=== PATIENT | female | born 1995 | race Caucasian/White ===

== ENCOUNTER 2019-11-13 04:05 | Inpatient (IN) ==
[2019-11-13] MEDS ORDERED: OXYTOCIN 30 UNITS/500 ML BAG IV PRN ×3 (04:43→14:25)
[2019-11-13 05:09] LABS: Hematocrit (blood only) 36.1 % (37-47); Hemoglobin 12.6 g/dL (12.0-16.0); Mean Corpuscular Hemoglobin 31.8 pg (25-34); Mean Corpuscular Volume 91.2 fL (80-100); Mean Platelet Volume 11.1 fL (7.4-10.4); Platelet Count 211 K/uL (130-400); RDW Coefficient of Variation 11.9 % (11.5-14.5); RDW Standard Deviation 39.6 fL (36.4-46.3); Red Blood Count 3.96 M/uL (4.2-5.4); White Blood Count 12.79 K/uL (4.8-10.8)
[2019-11-13 05:39] LABS: Mean Corpuscular Hgb Conc 34.9 g/dL (32-36)
--- NOTE | 2019-11-13 06:56 | History & Physical Report ---
Date of Service November 13, 2019 Assessment & Plan (1) : Patient is a 24 yo here for SROM and labor. -GBS -, Bloodtype O- -Pitocin for contraction augmentation -Patient desires epidural; will consult anaesthesia when contractions become painful -Will require Rhogam for O- status. -Anticipate vaginal delivery. (2) Idiopathic thrombocytopenic purpura (ITP): (3) Supervision of normal first : (4) Need for rhogam due to Rh negative mother: History of Present Illness Chief Complaint: Spontaneous ROM Primary Care Provider: MICHELLE PCP at 38 weeks by US 04/21/19 presenting today for spontaneous rupture of membranes around 3AM on 11/13/19 which she described as a "large gush of clear fluid." She has not noted any complications with her other than requiring Rhogam as an O-- mother and has been attending OB appointments appropriately. She only takes a with iron. She has been feeling some contractions lasting "a couple seconds" every 4-5 minutes since 3:30AM and feeling appropriate movement. She has not noted any vaginal blood loss. Labs -Blood type: O- -Antibody screen: Negative -H.6 -Hct: 36.1 -Wbc: 12.79 -Plt: 211 -Rubella: Immune -VDRL/RPR: Nonreactive -Gonorrhea: Not detected -Chlamydia: Not detected -HIV: Negative -HbSAg: Negative -GBS: Negative -Glucose tolerance x 2: 1hr test 98 Allergies Allergy/AdvReac Type Severity Reaction Status Date / Time No Known Drug Allergies Allergy Verified 11/06/19 10:46 Home Medications Home Medications Medication Instructions Recorded Confirmed Type vit no.[id number] 800 tab PO DAILY 11/13/19 11/13/19 History [ Vitamin] Patient History Medical History History of varicella Hx of chlamydia infection Idiopathic thrombocytopenic purpura (ITP) (Acute) Surgical History No pertinent past surgical history Family History Grandmother (Paternal) Alzheimer disease Breast cancer Grandfather (Maternal) Dementia Social History (Updated 05/07/19 @ 06:59 by Sandra Lloyd) Preferred Language: Georgian Communication Ability Comment: Pt wears glasses and contacts Recovery Agent Required: No Beliefs That Will Affect Care: None marital status: Single Current Living Situation: Significant Other Other Information That Helps Us Care for You: No Feels Safe at Home: Yes Safety Concerns: Feels Safe At This Time Smoking Status: Never smoker Do You Dip or Chew Tobacco: No ; Second Hand Exposure: No ; Hx Alcohol Use: No Hx Substance Use: No 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 Review of Systems no fever, no chills and no weakness no worsening vision no dizziness no cough and no dyspnea no chest pain, no dyspnea and no palpitations no abdominal pain, no nausea, no vomiting, no constipation and no diarrhea/loose stools no dysuria and no hematuria no headache(s) Physical Exam Constitutional: WD/WN, vitals as above Eyes: PERRL, conjunctivae normal, anicteric sclerae ENMT: external ear and nose normal, oropharynx normal Neck: normal visual inspection Respiratory: normal respiratory effort, lungs clear to auscultation Cardiovascular: Rate/Rhythm: regular rate and regular rhythm Heart Sounds: normal S1 and normal S2; no murmur Gastrointestinal (Abdomen): Inspection/Auscultation: + abdomen distended (Gravid) and normal bowel sounds Percussion/Palpation: abdomen soft; abdomen nontender Contractions palpable. Skin: no rashes, warm and dry Psychiatric: A+Ox3, euthymic affect Genitourinary: OB Exam Abdomen: + fundal height (Term), + heart tones, + vertex and + estimated weight (7 lbs) Manual OB Exam: + cervical dilation 1 cm, + cervical effacement 70% (75%), + station -2 and + amniotic fluid clear Cervical exam conducted by Dr. Foster Results & Data Vital Signs (Past 12 Hours) Vital Signs Temp Pulse Resp BP 11/13/19 04:18 37.0 C 118 H 18 118/80 11/13/19 04:16 118 H 118/80 Code Status & VTE Plan VTE Prophylaxis Plan VTE Prophylaxis will be ordered: No Reason for no VTE drug order: Contraindicated Monitoring External Monitor Category 1 Supervising Physician Co-Signing Physician Notes Resident Physician Supervision Note: I interviewed and examined the patient. Discussed with Dr. Nguyen and agree with findings and plan as documented in the note. Any exceptions or clarifications are listed here: at 38 weeks with gross srom. Not kim. Did have some cervical improvement over three hours of obs so feel can proceed with pitocin and they are agreeable. Category one fetus. Hx of ITP but plts good today. Has not been a recent problems. Anticipate . Documented By: Shanae Foster MD, FACOG Coding Level of Care Code None Diagnoses Z34.90 Idiopathic thrombocytopenic purpura (ITP) D69.3 Supervision of normal first Z34.00 Need for rhogam due to Rh negative mother Z29.13 Resident Activity Tracking Resident Involvement: Resident Care Provided Care Provided: OB Delivery
[2019-11-13] MEDS: LACTATED RINGER'S 1,000 ML IV PRN ×2 (07:36→10:27)
--- NOTE | 2019-11-13 09:01 | Labor Progress Brief Note ---
Date of Service November 13, 2019 Subjective Reason For Note: Other (Change of Provider) 24yo at 38 weeks GA, admitted with SROM at 0300. Pitcoin started at 0700. Assessment & Plan (1) Supervision of normal first : - tracing Cat II, accelerations with moderate variability - IUPC placed to better access ctx's - discussed with patient, all questions answered Physical Exam Genitourinary: Cervix: /-2, IUPC placed Results & Data Vital Signs (Past 12 Hours) Vital Signs Temp Pulse Resp BP 11/13/19 08:02 81 20 105/59 L 11/13/19 07:01 97.3 F L 88 20 110/64 11/13/19 04:18 98.6 F 118 H 18 118/80 11/13/19 04:16 118 H 118/80 Coding Level of Care Code None Diagnoses Supervision of normal first Z34.00
[2019-11-13] MEDS ORDERED: ePHEDrine sulfate 50 MG/ML AMP ONE (09:50)
[2019-11-13] MEDS ORDERED: fentaNYL citrate 100 MCG/2 ML VIAL ONE (09:50)
[2019-11-13] MEDS ORDERED: BUPIVACAINE 0.25% 30 ML VIAL ONE (09:50)
[2019-11-13] MEDS ORDERED: fentaNYL 2MCG/ML ROPIV 1.25MG/ML 100 ML BAG EPI ONE (09:51)
--- NOTE | 2019-11-13 10:16 | Anesthesiology Consultation ---
Date of Service November 13, 2019 Assessment & Plan Chart Review Chart Review: Patient NOT seen in Pre Admission Testing and Acceptable Risk for Labor Epidural Consults Requested none ASA ASA2 Proposed Anesthesia Anesthesia Type: Labor Epidural and CSE Risk / Benefits Reviewed With: PT / POA / Parent / Guardian, Accepts Plan and Informed Consent Obtained History Height/Weight Height: 5 ft 10 in Weight: 84.822 kg Allergies Allergy/AdvReac Type Severity Reaction Status Date / Time No Known Drug Allergies Allergy Verified 11/06/19 10:46 Medications Home Medications Medication Instructions Recorded Confirmed Last Taken vit no.[id number]-[id number] 800 tab PO DAILY 11/13/19 11/13/19 11/12/19 08:00 [ Vitamin] Active Medications Generic Name Dose Route Start Last Admin Trade Name Freq PRN Reason Stop Dose Admin Lactated Ringer's 1,000 mls @ 125 mls/hr 11/13/19 04:43 11/13/19 07:36 Lr IV 11/15/19 04:42 125 mls/hr .Q8H PRN Administration L&D Protocol Protocol Oxytocin 30 units in 500 mls @ 6 mls/hr 11/13/19 06:56 11/13/19 08:36 Pitocin IV 11/15/19 06:55 0.36 units/hr .Q24H PRN 6 mls/hr Labor Induction/Augmentation Titration Protocol 0.36 UNITS/HR NPO Date Last Intake of Fluids: 11/13/19 Time Last Intake of Fluids: 09:45 Date Last Intake of Solids: 11/12/19 Time Last Intake of Solids: 18:30 Past Medical History Medical History History of varicella Hx of chlamydia infection Idiopathic thrombocytopenic purpura (ITP) (Acute) Exercise / Class Metabolic Activity II 4-5 Yardwork/Stairs/Walk up hill Past Family History Family History Grandmother (Paternal) Alzheimer disease Breast cancer Grandfather (Maternal) Dementia Past Surgical History Surgical History No pertinent past surgical history Past Anesthesia History No Hx of Anesthesia Complications and No Family Hx of Anesthesia Complications History of PONV No Hx of PONV and No Hx of Motion Sickness Social History Smoking Status: Never smoker Do You Dip or Chew Tobacco: No Hx Alcohol Use: No Hx Substance Use: No substance use type: does not use Physical Exam Vital Signs Last Vital Signs Temp 36.3 C L 11/13/19 07:01 Pulse 75 11/13/19 09:55 Resp 20 11/13/19 08:59 BP 98/57 L 11/13/19 09:55 Constitutional + obese ENMT Mouth: no dentition abnormality Thyromental Distance: > or= 3.5 Finger Breadths Mallampati Class: II Neck normal visual inspection and trachea midline; neck extension not limited Respiratory normal respiratory effort Auscultation: lungs clear to auscultation bilaterally Cardiovascular Rate/Rhythm: regular rate and regular rhythm Heart Sounds: no murmur Musculoskeletal Spine: lumbar spine normal to inspection; normal cervical ROM Neurologic moves all extremities Motor/Sensory: no sensory deficit Psychiatric Orientation: alert and oriented x 3 Testing Laboratory Results 11/13/19 04:52
[2019-11-13] MEDS ORDERED: ONDANSETRON INJ 2 MG/ML 2 ML VIAL IV PRN (10:40)
[2019-11-13] MEDS ORDERED: NALOXONE HCL 0.4 MG/1 ML VIAL/CARP IV PRN (10:40)
[2019-11-13] MEDS ORDERED: NALBUPHINE HCL INJ 10 MG/ML AMP IV PRN (10:40)
[2019-11-13] MEDS ORDERED: ePHEDrine sulfate 50 MG/ML AMP IV PRN (10:40)
[2019-11-13] MEDS ORDERED: DiphenhydrAMINE HCL 50 MG/ML VIAL IV PRN (10:40)
[2019-11-13] MEDS ORDERED: NALOXONE HCL 1 MG in SODIUM CHLORIDE 0.9% 1000ML 1,000 ML IV PRN (10:40)
[2019-11-13] MEDS ORDERED: fentaNYL 2MCG/ML ROPIV 1.25MG/ML 100 ML BAG EPI PRN (10:40)
[2019-11-13] MEDS ORDERED: PROMETHAZINE HCL 25 MG in SODIUM CHLORIDE 0.9% 50 ML IV PRN (10:40)
[2019-11-13] MEDS ORDERED: BENZOCAINE 20% AER SPR 82.5 GM CAN EXT PRN (14:25)
[2019-11-13] MEDS ORDERED: ACETAMINOPHEN 325 MG TAB PO PRN (14:25)
[2019-11-13] MEDS ORDERED: HYDROCORTISONE ACETATE 25 MG SUPP PR PRN (14:25)
[2019-11-13] MEDS ORDERED: SUPERCREAM 0.870% 15 GM JAR EXT PRN (14:25)
[2019-11-13] MEDS ORDERED: ACETAMINOPHEN W/CODEINE #3 1 TAB PO PRN (14:25)
[2019-11-13] MEDS ORDERED: DIPHTHERIA/TETANUS/PERTUSSIS 0.5 ML SYR/VIAL IM ONE (14:25)
--- NOTE | 2019-11-13 14:25 | Delivery Summary ---
Vaginal Delivery Summary Date of Service November 13, 2019 Vaginal Delivery Summary Findings: Viable male with Apgars of 8 and 9 baby delivered over a midline second-degree laceration cord blood samples obtained placenta delivered spontaneously lacerations repaired with 4-0 Vicryl in a routine fashion estimated blood loss 300 cc Labor note: The patient is a 24-year-old 1 para 0 with an EDC of 27 November at 38 weeks gestational age who presents to labor and delivery with spontaneous rupture of membranes. Membranes ruptured approximately 0300 hrs. on day of admission. Patient denied contractions. Patient has had benign course. Her blood type is O- antibody negative rubella immune hepatitis B negative she had normal 1 hour Glucola x2, and a negative third trimester beta strep culture. Upon admission the patient was 1 cm dilated with gross rupture of membranes. She was observed for 4 hours for regular contractions which did not occur. Pitocin augmentation was initiated. Delivering physician assumed care of the patient at this point. The patient began kim in a regular fashion. Intrauterine pressure catheter was placed to better monitor contractions. Patient became uncomfortable and an epidural was placed. Over the next several hours the patient progressed to full dilatation and began her second stage. Patient pushed for approximately 20 minutes delivering the viable male . Cord was clamped and cut. Cord blood samples were obtained. Placenta was delivered spontaneously. Inspection of the perineum showed a midline second- degree laceration and a right labial laceration both of these lacerations were repaired with 4-0 Vicryl. Estimated blood loss was 300 cc. Sponge and needle count was correct.
--- NOTE | 2019-11-13 14:52 | Anesthesia Procedure Note ---
Date of Service November 13, 2019 Anesthesia Post Epidural Note Vital Signs Vital Signs: Temp Pulse Resp BP Pulse Ox 37.0 C 88 20 122/72 99 11/13/19 11:33 11/13/19 14:49 11/13/19 14:24 11/13/19 14:49 11/13/19 13:53 Notes Mental Status: alert / awake / arousable Nausea / Vomiting: adequately controlled Pain: adequately controlled Airway Patency, RR, SpO2: stable & adequate BP & HR: stable & adequate Hydration State: stable & adequate Neuraxial Anesthesia: was administered and sensory block is resolving Anesthetic Complications: no major complications apparent Epidural: Removed without complications and With tip intact
[2019-11-13] MEDS: IBUPROFEN 600 MG TAB PO PRN (18:18)
[2019-11-13] MEDS: DOCUSATE SODIUM 100 MG CAP PO SCH (20:34)
[2019-11-14] MEDS: IBUPROFEN 600 MG TAB PO PRN ×4 (03:18→20:16)
--- NOTE | 2019-11-14 06:16 | Obstetrical Progress Note ---
Date of Service <Luis Daniel Nguyen DO - Last Filed: 11/14/19 06:17> November 14, 2019 Assessment & Plan <DO nAne Stubbs Last Filed: 11/14/19 06:17> (1) : -PPD#1 -Vitals reviewed, WNL (Tmax 37.0) - GBS -, Blood Type O- - Clinically stable. - Feels well today. Eating well, voiding well, ambulating well. - Pain well controlled. - Routine post- care - After discharge will have [address] Germain Day #:: 1 Subjective <Luis Daniel Nguyen DO - Last Filed: 11/14/19 06:17> Ambulation: ambulating normally Voiding: no voiding problems Passing Gas:: Yes Diet Tolerance:: regular diet Lochia:: Moderate Feeding Type:: breast feeding Current Pain Level(1-10): 3 (improves with analgesics) Patient is a 24 PPD#1. Patient states that she is feeling well today and that her pain is well controlled. She has no other complaints at this time. Constitutional: no fever and no chills Respiratory: no cough, no dyspnea and no wheezing Cardiovascular: no chest pain, no dyspnea, no palpitations, no edema and no calf pain Breast: no breast pain Gastrointestinal: no abdominal pain, no nausea and no vomiting Genitourinary (female): no dysuria and no difficulty urinating Neurologic: no headache(s) Physical Exam <DO Anne Stubbs Last Filed: 11/14/19 06:17> Constitutional WD/WN, vitals as above Respiratory normal respiratory effort, lungs clear to auscultation Cardiovascular Rate/Rhythm: regular rate and regular rhythm Heart Sounds: normal S1 and normal S2; no click, no gallop, no murmur and no cardiac rub Extremities: no calf tenderness and no edema Gastrointestinal (Abdomen) Inspection/Auscultation: abdomen normal to inspection and normal bowel sounds Percussion/Palpation: abdomen soft; abdomen nontender Genitourinary OB Exam Abdomen: + fundal height Fundus: + firm and + relation to umbilicus (2cm below); not tender and not boggy Results & Data <Luis Daniel JudgenDO Rodríguez Last Filed: 11/14/19 06:17> Vital Signs (Past 12 Hours) Vital Signs Temp Pulse Resp BP Pulse Ox 11/14/19 03:15 36.7 C 74 20 123/70 11/13/19 23:55 36.4 C L 71 16 132/73 99 11/13/19 20:00 36.7 C 68 16 110/66 <Miguel Germain Jr, MD, FACOG - Last Filed: 11/14/19 07:45> Co-Signing Physician Notes Resident Physician Supervision Note: I was present with Dr. Nguyen during the history and exam. I discussed the case with the resident and agree with the findings and plan as documented in the note. Any exceptions or clarifications are listed here: Doing well, routine care. Documented By: Miguel Germain Jr, MD, FACOG Resident Activity Tracking <Luis Daniel Nguyen DO - Last Filed: 11/14/19 06:17> Resident Involvement: Resident Care Provided Care Provided: OB Delivery
[2019-11-14] MEDS: DOCUSATE SODIUM 100 MG CAP PO SCH ×2 (08:15→20:16)
[2019-11-14] MEDS: PRENATAL VITAMIN 1 TAB PO SCH (08:15)
[2019-11-14] MEDS: FERROUS SULFATE 325 MG TAB PO SCH (08:15)
[2019-11-14] MEDS ORDERED: bisacodyL 5 MG TABEC PO SCH (20:00)
[2019-11-15] MEDS: IBUPROFEN 600 MG TAB PO PRN ×2 (00:16→08:37)
[2019-11-15 06:48] LABS: Hematocrit (blood only) 33.7 % (37-47); Hemoglobin 11.4 g/dL (12.0-16.0)
--- NOTE | 2019-11-15 07:56 | Obstetrical Progress Note ---
Date of Service November 15, 2019 Assessment & Plan (1) state: meets criteria. no ext pain. home Subjective Ambulation: ambulating normally Voiding: no voiding problems Passing Gas:: Yes Diet Tolerance:: regular diet Lochia:: Small Feeding Type:: breast feeding Current Pain Level(1-10): 0 Results & Data Vital Signs (Past 12 Hours) Vital Signs Temp Pulse Resp BP Pulse Ox 11/15/19 00:05 97.7 F 67 18 126/75 99
[2019-11-15] MEDS: PRENATAL VITAMIN 1 TAB PO SCH (08:37)
[2019-11-15] MEDS: DOCUSATE SODIUM 100 MG CAP PO SCH (08:37)
[2019-11-15] MEDS: FERROUS SULFATE 325 MG TAB PO SCH (08:37)
== END 2019-11-15 12:10 | disposition home or self-care (01) | DRG 806 ==
LOC: OPB 04:05 → 4S1 04:08 → 4S2 18:01

== ENCOUNTER 2021-03-15 11:23 | Inpatient (IN) ==
[2021-03-16] MEDS ORDERED: OXYTOCIN 30 UNITS/500 ML BAG IV PRN (19:02)
[2021-03-16 19:43] LABS: Hematocrit (blood only) 36.3 % (37-47); Hemoglobin 12.5 g/dL (12.0-16.0); Mean Corpuscular Hemoglobin 31.6 pg (25-34); Mean Corpuscular Hgb Conc 34.4 g/dL (32-36); Mean Corpuscular Volume 91.9 fL (80-100); Mean Platelet Volume 10.9 fL (7.4-10.4); Platelet Count 235 K/uL (130-400); RDW Coefficient of Variation 12.8 % (11.5-14.5); RDW Standard Deviation 43.2 fL (36.4-46.3); Red Blood Count 3.95 M/uL (4.2-5.4); White Blood Count 11.39 K/uL (4.8-10.8)
[2021-03-16] MEDS: LACTATED RINGER'S 1,000 ML IV PRN (20:19)
--- NOTE | 2021-03-16 20:37 | History & Physical Report ---
Date of Service March 16, 2021 Assessment & Plan Admission and Anticipated Discharge Date Admission Date: March 16, 2021 IUP at 39 5/7 weeks for IOL start pitocin augmentation epidural analgesia when requested and if platelet count is normal anticipate vaginal History of Present Illness Primary Care Provider: NO PCP Patient is a 25 yo white female who presents at 39 5/7 weeks for IOL. has been uncomplicated. She has a history of ITP but NOB platelet count was normal at 238K. GBS negative O negative Allergies Allergy/AdvReac Type Severity Reaction Status Date / Time No Known Drug Allergies Allergy Verified 03/14/21 09:56 Home Medications Medication Instructions Recorded Confirmed Type Vitamin 800 tab PO DAILY 11/13/19 03/16/21 History breast pump #1 ea 12/28/20 03/14/21 Rx ferrous sulfate 1 tab PO DAILY 01/26/21 03/16/21 History Patient History Medical History History of varicella Hx of chlamydia infection Idiopathic thrombocytopenic purpura (ITP) Surgical History No pertinent past surgical history Family History Grandmother (Paternal) Alzheimer disease Breast cancer Grandfather (Maternal) Dementia Social History Smoking Status: Never smoker Second Hand Exposure: No; Hx Alcohol Use: No Hx Substance Use: No Preferred Language: Malawian Communication Ability: Effective 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 current occupational status: employed current occupation: [employer] Other Information That Helps Us Care for You: No Feels Safe at Home: Yes Safety Concerns: Feels Safe At This Time Assistive Devices: None Review of Systems All systems reviewed & are unremarkable except as noted in HPI & below Physical Exam Constitutional: WD/WN, vitals as above Respiratory: normal respiratory effort, lungs clear to auscultation Cardiovascular: RRR, no murmur, no edema Gastrointestinal (Abdomen): normal bowel sounds, soft, nontender, no hepatosplenomegaly Psychiatric: A+Ox3, euthymic affect Genitourinary: OB Exam Abdomen: + vertex, + estimated weight (7-8 pounds) and + irregular contractions Manual OB Exam: + cervical dilation 3 cm, + cervical effacement 60% and + station high OB Exam Monitor Tracing: + external FHT monitor used, + external uterine monitor used, + category I and + normal FHT variability Results & Data ([facility]) Vital Signs (Past 12 Hours) Vital Signs Temp Pulse Resp BP 03/16/21 19:26 99.0 F 86 16 116/72 Coding Level of Care Code None
[2021-03-17] MEDS ORDERED: ePHEDrine sulfate 50 MG/ML AMP ONE (01:34)
[2021-03-17] MEDS ORDERED: SODIUM CHLORIDE 0.9% INJ 10 ML VIAL ONE (01:34)
[2021-03-17] MEDS ORDERED: fentaNYL citrate 100 MCG/2 ML VIAL ONE (01:34)
[2021-03-17] MEDS ORDERED: BUPIVACAINE 0.25% 30 ML VIAL ONE (01:34)
[2021-03-17] MEDS ORDERED: fentaNYL 2MCG/ML ROPIVACAINE 1.25MG/ML 100 ML BAG EPI ONE (01:35)
[2021-03-17] MEDS: LACTATED RINGER'S 1,000 ML IV PRN (01:44)
[2021-03-17] MEDS ORDERED: ONDANSETRON INJ 2 MG/ML 2 ML VIAL IV PRN (01:55)
[2021-03-17] MEDS ORDERED: ePHEDrine sulfate 50 MG/ML AMP IV PRN (01:55)
[2021-03-17] MEDS ORDERED: NALOXONE HCL 0.4 MG/1 ML VIAL/CARP IV PRN (01:55)
[2021-03-17] MEDS ORDERED: fentaNYL 2MCG/ML ROPIVACAINE 1.25MG/ML 100 ML BAG EPI PRN (01:55)
[2021-03-17] MEDS ORDERED: NALOXONE HCL 1 MG in SODIUM CHLORIDE 0.9% 1000ML 1,000 ML IV PRN (01:55)
[2021-03-17] MEDS ORDERED: diphenhydrAMINE 50 MG/ML VIAL IV PRN (01:55)
--- NOTE | 2021-03-17 01:56 | Anesthesiology Consultation ---
Date of Service March 17, 2021 Assessment & Plan (1) Encounter for pre-operative examination: Chart Review Chart Review: Patient NOT seen in Pre Admission Testing and Acceptable Risk for Labor Epidural Consults Requested none History Height/Weight Height: 5 ft 10 in Weight: 83.915 kg Allergies Allergy/AdvReac Type Severity Reaction Status Date / Time No Known Drug Allergies Allergy Verified 03/14/21 09:56 Medications Home Medications Medication Instructions Recorded Confirmed Last Taken Vitamin 800 tab PO DAILY 11/13/19 03/16/21 03/16/21 breast pump #1 ea 12/28/20 03/14/21 Unknown ferrous sulfate 1 tab PO DAILY 01/26/21 03/16/21 03/16/21 Active Medications Generic Name Dose Route Start Last Admin Trade Name Freq PRN Reason Stop Dose Admin Lactated Ringer's 1,000 mls @ 125 mls/hr 03/16/21 18:59 03/17/21 01:44 Lr IV 03/18/21 18:58 125 mls/hr .Q8H PRN Administration L&D Protocol Protocol Oxytocin 30 units in 500 mls @ 13 mls/hr 03/16/21 19:02 03/17/21 00:30 Pitocin IV 03/18/21 19:01 0.78 units/hr .Q24H PRN 13 mls/hr Labor Induction/Augmentation Titration Protocol 0.78 UNITS/HR Past Medical History Medical History (Updated 03/17/21 @ 01:56 by Alexsander Otto MD) History of varicella Hx of chlamydia infection Idiopathic thrombocytopenic purpura (ITP) Exercise / Class Metabolic Activity II 4-5 Yardwork/Stairs/Walk up hill Past Family History Family History Grandmother (Paternal) Alzheimer disease Breast cancer Grandfather (Maternal) Dementia Past Surgical History Surgical History No pertinent past surgical history Past Anesthesia History No Hx of Anesthesia Complications and No Family Hx of Anesthesia Complications History of PONV No Hx of PONV and No Hx of Motion Sickness Social History Smoking Status: Never smoker Do You Dip or Chew Tobacco: No Hx Alcohol Use: No Hx Substance Use: No substance use type: does not use Physical Exam Vital Signs Last Vital Signs Temp 36.8 C 03/16/21 22:53 Pulse 64 03/17/21 01:50 Resp 18 03/17/21 00:59 BP 112/61 03/17/21 01:50 Testing Laboratory Results 03/16/21 19:23
[2021-03-17] MEDS: OXYTOCIN 30 UNITS/500 ML BAG IV PRN ×2 (05:11→06:28)
[2021-03-17] MEDS ORDERED: oxyCODONE/ACETAMINOPHEN 5mg/325mg TAB PO PRN (05:17)
[2021-03-17] MEDS ORDERED: OXYTOCIN 30 UNITS/500 ML BAG IV PRN (05:17)
[2021-03-17] MEDS ORDERED: bisacodyL 10 MG SUPP PR PRN (05:17)
[2021-03-17] MEDS ORDERED: ACETAMINOPHEN 325 MG TAB PO PRN (05:17)
[2021-03-17] MEDS ORDERED: SUPERCREAM 0.870% 15 GM JAR EXT PRN (05:17)
[2021-03-17] MEDS ORDERED: BENZOCAINE 20% AER SPR 82.5 GM CAN EXT PRN (05:17)
[2021-03-17] MEDS ORDERED: HYDROCORTISONE ACETATE 25 MG SUPP PR PRN (05:17)
[2021-03-17] MEDS ORDERED: DIPHTHERIA/TETANUS/PERTUSSIS 0.5 ML SYR/VIAL IM ONE (05:17)
--- NOTE | 2021-03-17 05:43 | Delivery Summary ---
Vaginal Delivery Summary Date of Service March 17, 2021 Patient is a 25-year-old 2 para 1-0-0-1 white female EDC of 03/18/2021 who presented for elective induction. Pitocin augmentation was begun and she requested epidural analgesia which was effective. Membranes were ruptured for clear fluid. She progressed to full dilation, and pushed effectively over intact perineum for delivery of a viable female infant in the occiput posterior position. The rest of the delivered easily and was placed on the mother's abdomen for further attention and drying. The infant was vigorous. The placenta was expressed intact with a three-vessel cord. bleeding was controlled with dilute Pitocin. Estimated blood loss was 200 cc. Mother and infant were doing well after delivery. Vaginal Delivery Summary [facility] Vaginal Delivery Charge Delivery Type Details: [facility]
--- NOTE | 2021-03-17 09:06 | Anesthesia Procedure Note ---
Date of Service March 17, 2021 Anesthesia Post Epidural Note Vital Signs Vital Signs: Temp Pulse Resp BP Pulse Ox 36.5 C 72 20 102/55 L 98 03/17/21 07:19 03/17/21 08:50 03/17/21 07:19 03/17/21 08:50 03/17/21 05:16 Pain Intensity Bilateral Abdomen: Pain Intensity: 1 Notes Mental Status: alert / awake / arousable and participated in evaluation Nausea / Vomiting: adequately controlled Pain: adequately controlled Airway Patency, RR, SpO2: stable & adequate BP & HR: stable & adequate Hydration State: stable & adequate Neuraxial Anesthesia: was administered and sensory block is resolving Anesthetic Complications: no major complications apparent and Pt Satisfied with anesthetic care Epidural: Removed without complications and With tip intact
[2021-03-17] MEDS: DOCUSATE SODIUM 100 MG CAP PO SCH ×2 (09:10→20:04)
[2021-03-17] MEDS: PRENATAL VITAMIN 1 TAB PO SCH (09:10)
[2021-03-17] MEDS: IBUPROFEN 600 MG TAB PO PRN ×2 (14:20→20:03)
--- NOTE | 2021-03-18 06:23 | Obstetrical Progress Note ---
Date of Service <Merlin Johnson MD - Last Filed: 03/18/21 07:56> March 18, 2021 Assessment & Plan <Merlin Johnson MD - Last Filed: 03/18/21 07:56> (1) Need for rhogam due to Rh negative mother: Adalgisa is a 25 y/o female who is now PPD #1 following eIOL -> at around 0500 on 03/17, approx. 39-6/7 weeks. She has a notable history of ITP that did NOT affect this (platelet counts normal), as well as an Rh- status. - Feels well today. Eating well, voiding well, ambulating well. - Pain well controlled with ibuprofen 600mg Q4H PRN. - Routine PPD care -- OOB, ambulation, diet - Rhogam given - Anticipate d/c today - After discharge will have [address] Rabago (2) (spontaneous vaginal delivery): Subjective <Merlin Johnson MD - Last Filed: 03/18/21 07:56> Adalgisa is a 25 y/o female who is now PPD #1 following eIOL -> at around 0500 on 03/17, approx. 39-6/7 weeks. Reports feeling well overall this morning. Endorses mild abdominal cramping and pain well managed on analgesics. Voiding without difficulty. Tolerating meals well and able to ambulate some. Some persistent lochia with some improvement this morning. Breast feeding. Review of Systems Denies fever, chills, sweats Denies shortness of breath, difficulty breathing, chest pain, palpitations, chest pressure. Denies breast pain. Denies dysuria. Denies headache or changes in vision. Physical Exam <Merlin Johnson MD - Last Filed: 03/18/21 07:56> General: Alert, oriented. No acute distress. Cardiac: Regular rate and rhythm, no murmurs/rubs/gallops. Respiratory: Clear to auscultation bilaterally a/p, no wheezes/rales/rhonchi. No increased work of breathing. Symmetrical chest rise. No respiratory distress. Abdomen: Soft, nontender, nondistended. Bowel sounds present. Uterus: Uterine fundus firm, palpable 2 cm below umbilicus. Lower Extremities: No lower extremity edema or swelling. No deep calf pain. Kin's negative bilaterally. Results & Data ([facility]) <Merlin Johnson MD - Last Filed: 03/18/21 07:56> Vital Signs (Past 12 Hours) Vital Signs Temp Pulse Resp BP Pulse Ox 03/18/21 03:46 36.7 C 56 L 16 109/66 98 03/17/21 23:12 36.5 C 50 L 16 112/70 98 03/17/21 19:17 36.7 C 65 16 109/70 98 <Marlene Bocanegra MD, FACOG - Last Filed: 03/18/21 08:31> Co-Signing Physician Notes Resident Physician Supervision Note: I interviewed and examined the patient. Discussed with Dr. Johnson and agree with findings and plan as documented in the note. Any exceptions or clarifications are listed here: pt doing well, denies complaints. eating, voiding, ambulating without issue, bleeding decreased. wants to go home. ff 2 down, nt calves. pp instructions reviewed, f/u 6wk pp check. rh pos, ri, . Documented By: Marlene Bocanegra MD, FACOG Resident Activity Tracking <Merlin Johnson MD - Last Filed: 03/18/21 07:56> Resident Involvement: Resident Care Provided Care Provided: Adult Hospital Medicine and OB Delivery
[2021-03-18 06:58] LABS: Hematocrit (blood only) 34.5 % (37-47); Hemoglobin 11.6 g/dL (12.0-16.0); Mean Corpuscular Hemoglobin 31.6 pg (25-34); Mean Corpuscular Hgb Conc 33.6 g/dL (32-36); Mean Platelet Volume 10.8 fL (7.4-10.4); Platelet Count 205 K/uL (130-400); RDW Coefficient of Variation 13.1 % (11.5-14.5); Red Blood Count 3.67 M/uL (4.2-5.4); White Blood Count 12.16 K/uL (4.8-10.8)
[2021-03-18] MEDS: PRENATAL VITAMIN 1 TAB PO SCH (08:43)
[2021-03-18] MEDS: DOCUSATE SODIUM 100 MG CAP PO SCH (08:43)
[2021-03-18] MEDS: IBUPROFEN 600 MG TAB PO PRN (08:44)
[2021-03-18] MEDS ORDERED: bisacodyL 5 MG TABEC PO SCH (20:00)
== END 2021-03-18 11:00 | disposition home or self-care (01) | DRG 807 ==
LOC: 4S1 03-16 18:57 → 4S2 03-17 12:15

== ENCOUNTER 2024-10-30 07:43 | Inpatient (IN) ==
[2024-10-30] MEDS ORDERED: OXYTOCIN 30 UNITS/NSS 30 UNITS/500 ML BAG IV PRN ×2 (08:46→15:47)
[2024-10-30] MEDS ORDERED: LIDOCAINE 1% LOCAL 20 ML VIAL INFIL PRN (08:46)
[2024-10-30 09:06] LABS: Hematocrit (blood only) 34.9 % (37.0-47.0); Hemoglobin 12.4 g/dl (12.0-16.0); Mean Corpuscular Hemoglobin 32.3 pg (25.0-34.0); Mean Corpuscular Hgb Conc 35.5 g/dL (32.0-36.0); Mean Corpuscular Volume 90.9 fL (80.0-100.0); Mean Platelet Volume 11.2 fL (9.4-12.4); Platelet Count 230 K/uL (130-400); RDW Coefficient of Variation 12.4 % (11.5-14.5); RDW Standard Deviation 40.7 fL (36.4-46.3); Red Blood Count 3.84 M/uL (4.20-5.40); White Blood Count 12.07 K/ul (4.8-10.8)
[2024-10-30] MEDS: SODIUM CHLORIDE 0.9% 1,000 ML IV SCH (09:15)
[2024-10-30] MEDS ORDERED: ePHEDrine sulfate 50 MG/ML AMP ONE (09:22)
--- NOTE | 2024-10-30 09:24 | History & Physical Report ---
Date of Service October 30, 2024 Assessment & Plan (1) Encounter for induction of labor: Plan: admit, iv, labs. arom done, start pit, epidural when desires. fhts categ 1. (2) Rubella non-immune status, antepartum: Plan: mmr pp (3) Need for rhogam due to Rh negative mother: Plan: eval pp (4) Idiopathic thrombocytopenic purpura (ITP): Plan: check cbc Admission and Anticipated Discharge Date Admission Date: October 30, 2024 History of Present Illness Chief Complaint: elective induction. Primary Care Provider: Joselyn Garland PA-C 29yo at 39+wks ega presents to LD with above cc. Patient notes no concerns, no rom, no vb. +FM. No ctx. PNC c/b 1. History of ITP 2. Need for Rhogam d/t Rh negative mother 3. Rubella [id number] pp PNL gbs neg OBH: x 2 GYNH: nl paps no stds Allergies Allergy/AdvReac Type Severity Reaction Status Date / Time No Known Drug Allergies Allergy Verified 10/29/24 13:45 Home Medications Medication Instructions Recorded Confirmed Type aspirin 81 mg tablet 81 mg PO DAILY 10/30/24 10/30/24 History ferrous sulfate 27 mg iron tablet 27 mg PO DAILY 10/30/24 10/30/24 History vits no.124-ferrous fum 1 tab PO DAILY 10/30/24 10/30/24 History 27 mg iron-folic acid 800 mcg tablet ( Vitamin) Patient History Medical History (Updated 10/30/24 @ 09:23 by Marlene Bocanegra MD, FACOG) Encounter for IUD insertion Mirena 05/20 History of varicella Hx of chlamydia infection Surgical History No pertinent past surgical history Family History (Updated 07/13/22 @ 09:14 by Virginie Luna) Grandmother (Paternal) Alzheimer disease Breast cancer Grandfather (Maternal) Dementia Denies family history of Ovarian cancer Colorectal cancer Social History (Updated 03/16/24 @ 13:18 by Citlali Faith LPN) Smoking Status: Never smoker Second Hand Exposure: No; Do You Dip or Chew Tobacco: No; Hx Alcohol Use: No Hx Substance Use: No Preferred Language: Greek Communication Ability: Effective Communication Ability Comment: Pt wears glasses and contacts Emt B Required: No Beliefs That Will Affect Care: None marital status: marital status details: Orestes (28) [phone] Current Living Situation: Family Current Living Situation Comment: lives with spouse, 2 kids, 2 dogs and bunny current occupational status: employed current occupation: [employer] Other Information That Helps Us Care for You: No Feels Safe at Home: Yes Safety Concerns: Feels Safe At This Time Assistive Devices: None Review of Systems as per Subjective / HPI Physical Exam Constitutional: WD/WN, vitals as above Respiratory: normal respiratory effort, lungs clear to auscultation Cardiovascular: Rate/Rhythm: regular rate and regular rhythm Gastrointestinal (Abdomen): soft gravid nt efw 7-8# Musculoskeletal: no edema nontender calves Neurologic: grossly normal Psychiatric: A+Ox3, euthymic affect Genitourinary: Manual OB Exam: + cervical dilation (2-3 cm), + cervical effacement 50%, + station -2 and + amniotic fluid (arom) clear OB Exam Monitor Tracing: + external FHT monitor used, + external uterine monitor used, + category I and + normal FHT variability Results & Data Vital Signs (Past 12 Hours) Vital Signs Temp Pulse Resp BP 10/30/24 08:13 126 H 103/70 10/30/24 08:08 98.1 F 18 Coding Level of Care Code None Diagnoses Encounter for induction of labor Z34.90 Rubella non-immune status, antepartum O09.899; Z28.39 Need for rhogam due to Rh negative mother Z29.13 Idiopathic thrombocytopenic purpura (ITP) D69.3
[2024-10-30] MEDS ORDERED: NALOXONE HCL 0.4 MG/1 ML VIAL/CARP IV PRN (09:40)
[2024-10-30] MEDS ORDERED: LIDOCAINE 2%/EPINEPHRINE 1:200,000 20 ML PF EPI STA (09:40)
[2024-10-30] MEDS ORDERED: NALOXONE HCL 1 MG in SODIUM CHLORIDE 0.9% 1,000 ML IV PRN (09:40)
[2024-10-30] MEDS ORDERED: BUPIVACAINE 0.25% PF 30 ML VIAL EPI PRN (09:40)
[2024-10-30] MEDS ORDERED: fentANYL 2 MCG/ML BUPIVacaine 0.125%-NSS 100ML BAG EPI PRN (09:40)
[2024-10-30] MEDS ORDERED: SODIUM CHLORIDE 0.9% PF INJ 10 ML VIAL EPI PRN (09:40)
[2024-10-30] MEDS ORDERED: NALBUPHINE HCL INJ 10 MG/ML AMP IV PRN (09:40)
[2024-10-30] MEDS ORDERED: ROPIVACAINE 0.5% PF 5 MG/ML 20 ML VIAL EPI PRN (09:40)
[2024-10-30] MEDS ORDERED: LIDOCAINE 2% MPF LOCAL 5 ML VIAL EPI PRN (09:40)
[2024-10-30] MEDS ORDERED: fentaNYL citrate PF 100 MCG/2 ML VIAL EPI PRN (09:40)
[2024-10-30] MEDS ORDERED: diphenhydrAMINE 50 MG/ML VIAL IV PRN (09:40)
--- NOTE | 2024-10-30 09:40 | Anesthesiology Consultation ---
Date of Service October 30, 2024 Assessment & Plan (1) Encounter for pre-operative examination: Chart Review Chart Review: Patient NOT seen in Pre Admission Testing and Acceptable Risk for Labor Epidural Consults Requested none History Height/Weight Height: 5 ft 10 in Weight: 90.718 kg Allergies Allergy/AdvReac Type Severity Reaction Status Date / Time No Known Drug Allergies Allergy Verified 10/29/24 13:45 Medications Home Medications Medication Instructions Recorded Confirmed Last Taken aspirin 81 mg tablet 81 mg PO DAILY 10/30/24 10/30/24 10/29/24 ferrous sulfate 27 mg iron tablet 27 mg PO DAILY 10/30/24 10/30/24 10/29/24 vits no.124-ferrous fum 1 tab PO DAILY 10/30/24 10/30/24 10/29/24 27 mg iron-folic acid 800 mcg tablet ( Vitamin) Active Medications Generic Name Dose Route Start Last Admin Trade Name Freq PRN Reason Stop Dose Admin Sodium Chloride 1,000 mls @ 80 mls/hr 10/30/24 09:30 10/30/24 09:15 Nss IV 10/31/24 09:29 999 mls/hr .[id number] SHERITA Administration Past Medical History Medical History Encounter for IUD insertion Mirena 05/20 History of varicella Hx of chlamydia infection Past Family History Family History Grandmother (Paternal) Alzheimer disease Breast cancer Grandfather (Maternal) Dementia Denies family history of Ovarian cancer Colorectal cancer Past Surgical History Surgical History No pertinent past surgical history Social History Smoking Status: Never smoker Do You Dip or Chew Tobacco: No Hx Alcohol Use: No Hx Substance Use: No substance use type: does not use Physical Exam Vital Signs Last Vital Signs Temp 98.1 F 10/30/24 08:08 Pulse 83 10/30/24 09:38 Resp 18 10/30/24 08:08 BP 103/70 10/30/24 08:13 Pulse Ox 98 10/30/24 09:38 Testing Laboratory Results 10/30/24 07:59
[2024-10-30] MEDS: LIDOCAINE 2%/EPINEPHRINE 1:200,000 20 ML PF ONE (10:03)
[2024-10-30] MEDS: fentANYL 2 MCG/ML BUPIVacaine 0.125%-NSS 100ML BAG ONE (10:04)
[2024-10-30] MEDS: SODIUM CHLORIDE 0.9% PF INJ 10 ML VIAL ONE (10:04)
[2024-10-30] MEDS: BUPIVACAINE 0.25% PF 30 ML VIAL ONE (10:04)
[2024-10-30] MEDS: fentaNYL citrate PF 100 MCG/2 ML VIAL ONE (10:04)
[2024-10-30] MEDS: OXYTOCIN 30 UNITS/NSS 30 UNITS/500 ML BAG IV PRN (10:23)
[2024-10-30] MEDS: ePHEDrine sulfate 50 MG/ML AMP IV PRN (13:18)
[2024-10-30] MEDS: fentaNYL citrate PF 100 MCG/2 ML VIAL EPI STA (14:47)
[2024-10-30] MEDS: BUPIVACAINE 0.25% PF 30 ML VIAL EPI STA (14:47)
[2024-10-30] MEDS: SODIUM CHLORIDE 0.9% PF INJ 10 ML VIAL EPI STA (14:47)
--- NOTE | 2024-10-30 14:55 | Anesthesia Procedure Note ---
Date of Service October 30, 2024 Anesthesia Epidural Re-Dose Vital Signs Temp Pulse Resp BP Pulse Ox 98.1 F 118 H 18 90/55 L 99 10/30/24 13:30 10/30/24 14:41 10/30/24 13:30 10/30/24 14:41 10/30/24 14:38 Notes Pain Intensity: 4 Dilatation (cm): 2.5 Effacement (%): 50 Called by nursing to evaluate epidural as the patient is having increased pain. The epidural was re-dosed with the following medications (all medications via epidural route) after negative aspiration of the epidural catheter for CSF/HEME. 0.125% Bupivacaine (8ml) with 100 mcg Fentanyl After Epidural Re-Dose Mental Status: alert / awake / arousable Pain: improving with treatment Airway Patency, RR, SpO2: stable & adequate BP & HR: stable & adequate
--- NOTE | 2024-10-30 15:31 | Delivery Summary ---
Supervising Physician Co-Signing Physician Notes Spontaneous vaginal delivery the patient had an epidural she pushed over 2 contractions delivering a baby in occiput anterior position after delivery of the head a loose nuchal cord was passed over the baby's head baby came out in RANI position gentle traction on the baby resulted in easy delivery no excessive force live vigorous male infant Cord clamped and cut cord blood obtained placenta removed with traction IV Pitocin started there were no lacerations noted of the vagina or vulva sponge and instrument counts were correct quantitative blood loss per nursing record Vaginal Delivery Summary Date of Service October 30, 2024 Vaginal Delivery Summary [facility] Vaginal Delivery Charge Delivery Type Details:
[2024-10-30] MEDS ORDERED: bisacodyL 10 MG SUPP PR PRN (15:47)
[2024-10-30] MEDS ORDERED: HYDROCORTISONE ACETATE 25 MG SUPP PR PRN (15:47)
[2024-10-30] MEDS ORDERED: ACETAMINOPHEN 325 MG TAB PO PRN (15:47)
--- NOTE | 2024-10-30 15:54 | Anesthesia Procedure Note ---
Date of Service October 30, 2024 Anesthesia Post Epidural Note Vital Signs Vital Signs: Temp Pulse Resp BP Pulse Ox 98.1 F 92 H 18 119/59 L 99 10/30/24 13:30 10/30/24 15:39 10/30/24 15:21 10/30/24 15:39 10/30/24 15:23 Pain Intensity Lower Abdomen: Pain Intensity: 6 Notes Mental Status: alert / awake / arousable and participated in evaluation Nausea / Vomiting: adequately controlled Pain: adequately controlled Airway Patency, RR, SpO2: stable & adequate BP & HR: stable & adequate Hydration State: stable & adequate Neuraxial Anesthesia: was administered and sensory block is resolving Anesthetic Complications: no major complications apparent and Pt Satisfied with anesthetic care Epidural: Removed without complications and With tip intact
[2024-10-30] MEDS: IBUPROFEN 600 MG TAB PO PRN (17:47)
[2024-10-30] MEDS: BENZOCAINE 20% SPRY 85 APPLN/85 GM CAN EXT PRN (17:47)
[2024-10-30 23:01] VITALS: RESP 16
[2024-10-31] MEDS: DOCUSATE SODIUM 100 MG CAP PO SCH (01:50)
[2024-10-31 06:38] LABS: Hematocrit (blood only) 29.4 % (37.0-47.0); Hemoglobin 10.2 g/dl (12.0-16.0); Mean Corpuscular Hemoglobin 31.7 pg (25.0-34.0); Mean Corpuscular Hgb Conc 34.7 g/dL (32.0-36.0); Mean Corpuscular Volume 91.3 fL (80.0-100.0); Platelet Count 177 K/uL (130-400); RDW Coefficient of Variation 12.6 % (11.5-14.5); Red Blood Count 3.22 M/uL (4.20-5.40); White Blood Count 13.14 K/ul (4.8-10.8)
--- NOTE | 2024-10-31 06:51 | Obstetrical Progress Note ---
Date of Service October 31, 2024 Assessment & Plan (1) Encounter for assessment: Plan: Patient is PPD 1 s/p and doing well - Eating well, voiding well, ambulating well - vitals reviewed and within normal limits - pain well controlled with analgesics - OOB, ambulation, diet progression as tolerated - Blood type: O-, GBS neg, rubella immune - Plan to discharge [today] - After discharge, 6 week follow up with OBGYN Admission and Anticipated Discharge Date Admission Date: October 30, 2024 Subjective 29 yo post- day 1 s/p complicated by idiopathic thrombocytic purpura Ambulation: ambulating normally Voiding: no voiding problems Passing Gas:: Yes Diet Tolerance:: regular diet Lochia:: Small Feeding Type:: bottle feeding Current Pain Level: Resting comfortably this AM in NAD. Denies LYMAN, CP, SOB, N/V/D, LE pain/swelling. Physical Exam Physical Exam: General: patient resting comfortably, NAD, non-toxic in appearance, answers questions appropriately. Skin: warm, dry, intact HEENT: NC/AT, anicteric sclera, conjunctiva without injection, moist mucus membranes. Heart: +S1/S2, regular, no m/r/g Lungs: equal air entry bilaterally, no rales/rhonchi/wheezes Abd: +BS, soft, NT/ND, uterine fundus firm at umbilicus Ext: warm, no clubbing/cyanosis or edema Neuro: nonfocal, speech intact, no facial droop, moving all extremities. Results & Data Vital Signs (Past 12 Hours) Vital Signs Temp Pulse Resp BP O2 Del Method 10/31/24 03:00 36.6 C 57 L 16 105/65 Room Air 10/30/24 22:59 36.7 C 69 16 118/67 Room Air 10/30/24 19:58 36.7 C 71 14 116/67 Room Air Resident Activity Tracking Resident Involvement: Resident Care Provided Care Provided: OB Delivery
--- NOTE | 2024-10-31 06:59 | Obstetrical Progress Note ---
Date of Service October 31, 2024 Assessment & Plan (1) Encounter for assessment: Plan stable, routine care. desires dc home later today. instructions reviewed. f/u 6 wks pp check. breast/needs mmr, does not need rhogam baby rh neg. Subjective Ambulation: ambulating normally Voiding: no voiding problems Diet Tolerance:: regular diet Lochia:: Small Feeding Type:: breast feeding did have to use some formula supplement due to baby glucoses but plans nursing only. feels well and wants to go home today if she can baby rh neg Constitutional: + as per Subjective / HPI Physical Exam Constitutional WD/WN, vitals as above Respiratory normal respiratory effort, lungs clear to auscultation Cardiovascular Rate/Rhythm: regular rate and regular rhythm Gastrointestinal (Abdomen) Inspection/Auscultation: abdomen normal to inspection Percussion/Palpation: abdomen soft Fundus firm 2cm down Musculoskeletal nt calves no edema Neurologic grossly normal Psychiatric A+Ox3, euthymic affect Results & Data Vital Signs (Past 12 Hours) Vital Signs Temp Pulse Resp BP O2 Del Method 10/31/24 03:00 97.9 F 57 L 16 105/65 Room Air 10/30/24 22:59 98.1 F 69 16 118/67 Room Air 10/30/24 19:58 98.1 F 71 14 116/67 Room Air
[2024-10-31] MEDS: PRENATAL VITAMIN 1 TAB PO SCH (08:24)
[2024-10-31] MEDS: DIPHTHER/TETAN/PERTUS Vaccine (Tdap, Adol/Adult) 0.5mL IM ONE (09:21)
[2024-10-31] MEDS: MEASLES, MUMPS & RUBELLA VIRUS VACCINE (MMR) 0.5ML VIAL SQ ONE (09:22)
[2024-10-31 13:08] VITALS: O2SAT 98
[2024-10-31 15:30] VITALS: BP 108/66; PULSE 58; TEMP 98.6
[2024-10-31] MEDS ORDERED: bisacodyL 5 MG TABEC PO SCH (20:00)
== END 2024-10-31 16:15 | disposition home or self-care (01) | DRG 806 ==
LOC: 4S1 07:43 → 4E2 18:27